=== PATIENT | female | born 1990 | race Caucasian/White ===

== ENCOUNTER 2020-09-27 06:05 | Inpatient (IN) | payer OTHER ==
[~2020-09-27] VITALS: Ht 153.7 cm; Wt 102.5 kg
[2020-09-27 07:31] LABS: HEMOGLOBIN 11.3 gm/dl (12.3-15.3); RED BLOOD COUNT 3.77 M/UL (4.00-5.10); WHITE BLOOD COUNT 17.1 K/UL (4.5-11.0)
[2020-09-27] MEDS ORDERED: SUBUTEX 8 MG TAB8 MG GT (15:17)
[2020-09-27] MEDS ORDERED: TYLENOL325 MG PO (15:18)
[2020-09-27] MEDS ORDERED: PRENATAL VITAM1 EAC3 PO (15:19)
[2020-09-28 06:14] LABS: HEMOGLOBIN 10.9 gm/dl (12.3-15.3)
[2020-09-28 16:18] LABS: HEMOGLOBIN 11.1 gm/dl (12.3-15.3); RED BLOOD COUNT 3.6 M/UL (4.00-5.10); WHITE BLOOD COUNT 20.3 K/UL (4.5-11.0)
[2020-09-28 16:44] LABS: BUN/CREATININE RATIO 22 (0-10)
[2020-09-29] MEDS ORDERED: TYLENOL EXTRA500 MG PO (11:57)
[2020-09-29] MEDS ORDERED: COLACE100 MG PO (11:57)
== END 2020-09-29 13:22 | disposition home or self-care (01) | DRG 787 ==
LOC: GENOP 06:05 → OB 07:11
PROVIDERS: Obstetrics & Gynecology; ADMIT Obstetrics & Gynecology
PROC: 4A1HXCZ Monitoring of Products of Conception, Cardiac Rate, External Approach (ICD-10-PCS; 2020-09-27)
PROC: 10D00Z1 Extraction of Products of Conception, Low, Open Approach (ICD-10-PCS; principal; 2020-09-27 09:38)
DX: O76 Abnormality in fetal heart rate and rhythm complicating labor and delivery (principal); O98.42 Viral hepatitis complicating childbirth; O99.324 Drug use complicating childbirth; Z3A.38 38 weeks gestation of pregnancy; Z37.0 Single live birth; O99.52 Diseases of the respiratory system complicating childbirth; J45.909 Unspecified asthma, uncomplicated; O99.344 Other mental disorders complicating childbirth; Z20.822 Contact with and (suspected) exposure to COVID-19; F41.9 Anxiety disorder, unspecified; F32.9 Major depressive disorder, single episode, unspecified; B19.20 Unspecified viral hepatitis C without hepatic coma; O99.53 Diseases of the respiratory system complicating the puerperium; R09.02 Hypoxemia; O36.5930 Maternal care for other known or suspected poor fetal growth, third trimester, not applicable or unspecified; O62.2 Other uterine inertia
CPT/HCPCS: 36415; 71045; 80053; 80307; 81001; 82800; 83518; 83880; 85014; 85018; 85025; 86900; 86901; 94640; 94760; J0456; J0690; J1885; J2001; J2210; J2250; J2274; J2405; J2590; J2795; J7030; J7120; U0002